=== PATIENT | male | born 1955 | race Caucasian/White ===

== ENCOUNTER 2018-01-07 22:23 | Emergency (ER) | payer OTHER, MEDICARE ==
[~2018-01-07] VITALS: Ht 190.5 cm; Wt 86.2 kg
[2018-01-07 22:37] VITALS: BP_SYST 131
[2018-01-07] MEDS ORDERED: PCN (22:42)
--- NOTE | 2018-01-07 22:43 | NUR ---
Patient to ER bed 8 to gown for evaluation. Side rails up. Report given to Joellen MACK.
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
--- NOTE | 2018-01-07 23:35 | NUR ---
ER Dr. Lam at bedside examining patient.
[2018-01-07 23:48] VITALS: BP_SYST 131
--- NOTE | 2018-01-07 23:48 | NUR ---
Patient given written and verbal discharge instructions and verbalizes understanding. ER MD discussed with patient the results and treatment provided. Patient in stable condition. ID arm band removed. No Rx given. Patient educated on pain management and to follow up with PMD. Pain Scale 0/10 Opportunity for questions provided and answered.
== END 2018-01-07 23:48 | disposition home or self-care (01) ==
LOC: SED 22:23
DX: H10.211 Acute toxic conjunctivitis, right eye (principal); R03.0 Elevated blood-pressure reading, without diagnosis of hypertension
CPT/HCPCS: 99282